=== PATIENT | female | born 1960 | race Caucasian/White ===

== ENCOUNTER → 2019-03-22 | Outpatient (CLI) | payer SELFPAY | END | disposition home or self-care (01) | LOC: LABSPEC 15:42 | PROVIDERS: Family Provider Family Medicine; PCP Family Medicine; Referring Provider Otolaryngology Otolaryngology/Facial Plastic Surgery; Visit Provider Otolaryngology Otolaryngology/Facial Plastic Surgery | DX: J32.9 Chronic sinusitis, unspecified (principal) | CPT/HCPCS: 87070; 87077; 87186; 87205 ==

== ENCOUNTER → 2020-01-05 | Outpatient (CLI) | payer OTHER, SELFPAY ==
--- NOTE | 2020-01-05 11:40 | RAD_ITS ---
HISTORY: COUGH PATIENT STATES JUST HAD COVID TESTING. ADDITIONAL HISTORY: None provided. COMPARISON: None EXAMINATION/TECHNIQUE: XR Chest 2 Views Number of images including paperwork: 2 FINDINGS: LUNGS AND PLEURA: No consolidation, mass or pleural effusion. CARDIAC SILHOUETTE: Unremarkable. MEDIASTINUM AND AVA: Unremarkable. UPPER ABDOMEN: Unremarkable. SKELETON AND SOFT TISSUES: No acute findings. Degenerative changes. Thoracolumbar kyphosis. OTHER DEVICES AND HARDWARE: None. RAD/Chest PA and Lateral IMPRESSION: No acute cardiopulmonary abnormality. at 0052 Reported and signed by: Lindsey Hall MD Electronically Signed: Lindsey Hall MD at 0:52 EDT Tel , Service support ,
== END | disposition home or self-care (01) ==
LOC: RAD 11:32
PROVIDERS: PCP Family Medicine; Referring Provider Family Medicine; Visit Provider Family Medicine
DX: J20.9 Acute bronchitis, unspecified (principal)
CPT/HCPCS: 71046; 87635; U0003

== ENCOUNTER 2020-07-17 20:08 | Emergency (ER) | payer OTHER, SELFPAY ==
[2020-07-17 20:10] VITALS: BP 154/88; PULSE 80; RESP 18; TEMP 36.8; O2SAT 97; BMI 26.2
--- NOTE | 2020-07-17 20:56 | ED.VIS.GEN ---
History of Present Illness Chief Complaint: Laceration Informant: Patient Narrative: 59-year-old female presenting with laceration to the left aspect of her hand. She states bleeding is controlled. Patient already butterflied the wound together. Minimal pain. Tetanus is up-to-date. Past Medical History - Allergies and Home Meds Allergies/Adverse Reactions: Allergies soy Allergy (Verified 07/17/20 20:10) Rash Primary Care Physician: Landon Thomas MD [Primary Care Provider] - Prior records reviewed: Yes Past Medical History: - - She denies significant medical history. Surgical History: noncontributory Lives: Spouse/ Significant Other Smoking Status: Never smoker Alcohol: None Drugs: None Review of Systems General: Denies: Chills, Fever, Sweats Eyes: Denies: Visual changes - bilaterally, Diplopia ENT: Denies: Rhinorrhea, Sore throat Cardiovascular: Denies: Chest pain, Palpitations Respiratory: Denies: Dyspnea, Cough, Dyspnea on exertion Gastrointestinal: Denies: Abdominal pain, Nausea, Vomiting, Diarrhea, Melena, Hematochezia Genitourinary: Denies: Dysuria, Hematuria, Frequency Musculoskeletal: Denies: Back pain, Extremity Pain Skin: Reports: Wounds. Denies: Rash Neurological: Denies: Headache, Weakness, Numbness Psych: Denies: Depression, Anxiety Physical Exam Vital Signs/Narrative: Vital Signs Temp Pulse Resp BP Pulse Ox 07/17/20 20:10 98.3 F 80 18 154/88 H 97 Inital Vital Signs reviewed: Yes General: Well nourished, Well developed, No Acute Distress Head: Normocephalic, Atraumatic Eyes: Perrl, EOMI ENT: Moist mucous membranes, No rhinorrhea Cardiovascular: Regular rate, Regular rhythm, No murmurs Respiratory: No distress, CTA bilaterally, Chest nontender Skin: Normal color, No rash, - - 0.5 cm laceration to left medial hand Neurological: Alert, Oriented x3 Psychological: Normal affect, Normal Mood Diagnostic/Tx/Re-eval - Medical Decision Making Patient presents with laceration to the left medial hand which is well approximated with a butterfly. There is no bleeding. Patient counseled that I could possibly suture this however it does not look deep in it is already approximated. Patient felt comfortable being discharged home. She was placed in a new dressing. Impression: 1. 1.5 cm laceration ED Disposition - Plan for ED Patient: Disposition: Home or Assisted Living Instructions: ED Laceration: All Closures Referrals: Landon Thomas MD [Primary Care Provider] -
[2020-07-17 21:12] VITALS: BP 148/78; PULSE 80; RESP 18; O2SAT 97
== END 2020-07-17 21:13 | disposition home or self-care (01) ==
PROVIDERS: Emergency Provider Student in an Organized Health Care Education/Training Program; PCP Family Medicine
DX: S61.412A Laceration without foreign body of left hand, initial encounter (principal); W26.9XXA Contact with unspecified sharp object(s), initial encounter; Y93.89 Activity, other specified; Y92.89 Other specified places as the place of occurrence of the external cause; Y99.8 Other external cause status
CPT/HCPCS: 99283

== ENCOUNTER → 2021-03-09 15:14 | Outpatient (CLI) | payer OTHER, SELFPAY | PROVIDERS: PCP Family Medicine; Referring Provider Family Medicine; Visit Provider Family Medicine | DX: U07.1 COVID-19 (principal); Z20.822 Contact with and (suspected) exposure to COVID-19 | CPT/HCPCS: 87635; U0005; U0003 ==

== ENCOUNTER 2021-03-13 12:59 | Emergency (ER) | payer OTHER, SELFPAY ==
[2021-03-13 13:00] VITALS: BP 121/83; PULSE 92; RESP 16; TEMP 37.2; O2SAT 96; BMI 25.4
[2021-03-13 13:26] VITALS: O2SAT 94
[2021-03-13] MEDS: 0.9% Normal Saline 1,000 ML 1000 ML IV (14:13)
[2021-03-13 14:15] LABS: Absolute Lymphocyte Count 0.61 X10^3/uL (0.83-4.51); Absolute Neutrophil Count 4.5 X10^3/uL (2.0-7.7); Basophil# 0.01 X10^3/uL; Basophil% 0.2 % (0-1); Hematocrit 42.1 % (37-47); Hemoglobin 13.9 g/dL (12.0-15.0); Lymphocyte # 0.61 X10^3/ul (0.83-4.51); Lymphocyte % 11.3 % (19-41); Mean Corpuscular Hgb 28.7 pg (27.0-32.0); Mean Platelet Vol. 8.6 fl (6.2-12.0); Monocyte# 0.29 X10^3/uL; Monocyte% 5.4 % (0-10); NRBC Flagged by Analyzer 0 % (0-5); Neutrophil # 4.45 X10^3/uL (2.7-7.7); Neutrophil % 82.7 % (47-70); Platelet Count 231 K/mm3 (150-450); RBC Distribution Width CV 12.2 % (11.6-14.6); RBC Distribution Width SD 39.3 fl (35.1-43.9); Red Blood Count 4.84 M/mm3 (4.2-5.4); White Blood Count 5.4 K/mm3 (4.4-11.0)
[2021-03-13 14:27] VITALS: O2SAT 93
--- NOTE | 2021-03-13 14:30 | RAD_ITS ---
STUDY: X-RAY CHEST REASON FOR EXAM: Female, 60 years old. Cough, + COVID TECHNIQUE: Single frontal view of the chest. COMPARISON: 01/05/2020 FINDINGS: There are nonspecific opacities within the lower lungs. There is cardiomegaly. Normal mediastinum and jamil. Normal visualized pulmonary arteries. Normal visualized aortic arch and descending thoracic aorta. Normal visualized thoracic spine. Normal visualized ribs, clavicles, and shoulders. There is no demonstrated abnormality of the visualized soft tissue structures of the upper abdomen. RAD/Chest 1 View (Portable) IMPRESSION: Nonspecific opacities within the lower lungs may be partially secondary to a confluence of shadows however cannot entirely exclude multifocal pneumonia. Cardiomegaly. Electronically Signed: Diann Acuna MD at 14:53 EDT Tel , Service support ,
[2021-03-13 14:31] LABS: Anion Gap 5 (5-15); BUN 13 mg/dL (7-18); BUN/Creat Ratio 13.8 RATIO (10-20); Calcium,Total 8.8 mg/dL (8.5-10.1); Chloride 102 mmol/L (98-107); Creatinine, Serum 0.94 mg/dL (0.55-1.02); EST Glomerular Filtration Rate 64 mL/min (>60); Est Glom Filt Rate - Afr Amer 78 mL/min (>60); Estimated Creatinine Clearance 54.27 ml/min; Glucose 114 mg/dL (74-106); Sodium Level 137 mmol/L (136-145); Troponin-I HS 17 pg/mL (3.0-54.0)
[2021-03-13] MEDS: Ketorolac 15 MG/ML Vial IV (14:38)
--- NOTE | 2021-03-13 14:50 | EDS_ITS ---
HPI History of Present Illness Chief Complaint: Shortness of Breath Informant: patient Narrative Narrative: Patient is a 60-year-old female with history of asthma presenting with worsening cough. Patient states she had a cough since Tuesday, for the past week. She was tested for Covid and had a positive Covid test on Tuesday of this week, 4 days ago. She is been feeling short of breath is having chest pain associate with her coughing. She attributes her cough to allergy she gets every year since is they are currently harvesting soybeans and she is allergic to soybean dust. She has tried an inhaler which is not helping. She would like a prescription for steroids. She denies any swelling of her legs. She denies any history of DVT or PE. She denies any other complaints at this time. She denies any fever or chills. Patient does note that she feels dehydrated from not drinking as much and she is been coughing so much. [facility] Medical History Asthma Home Medications prednisone 40 mg PO DAILY #10 tab 03/13/21 [Rx Last Taken Unknown] Allergy/AdvReac Type Severity Reaction Status Date / Time soy Allergy Rash Verified 03/13/21 13:05 Social History Smoking Status: Never smoker ROS ROS ED Constitutional Constitutional ED: Denies chills, fever(s) or malaise Eyes Eyes: Denies blurry vision or loss of vision ENT ENT ED: Denies rhinorrhea or sore throat Cardiovascular Cardiovascular: Reports chest pain; Denies dizziness Respiratory/Chest Respiratory/Chest: Reports cough and dyspnea; Denies sputum Gastrointestinal Gastrointestinal: Denies nausea or vomiting Genitourinary Genitourinary ED: Denies dysuria or hematuria Musculoskeletal Musculoskeletal: Denies arthralgias or myalgias Integumentary Denies rash or wounds Neurologic Neurologic: Denies focal weakness or headache(s) Psychiatric Psychiatric: Denies anxiety or behavioral changes EXAM Physical Exam Const Vital Signs: 03/13/21 13:00 03/13/21 13:26 Temperature 99 F Temperature Source Oral Pulse Rate 92 Respiratory Rate 16 Respiratory Effort Short of Breath Blood Pressure 121/83 H Blood Pressure Mean 95 Pulse Ox 96 Oxygen Delivery Method Room Air Room Air Positive well nourished and well developed General Appearance ED: well developed HEENT Reports TM's clear and moist mucous membranes Tympanic Membrane ED: Yes TM's clear Eyes PERRL and EOMs intact bilaterally Neck supple and no JVD Chest Wall inspection of chest normal and palpation of chest normal Resp normal respiratory effort and clear to auscultation bilaterally Resp Narrative: Bronchial cough on exam Auscultation: Negative for rales, rhonchi or wheezes Cardio regular rate GI normal to inspection, nondistended, normoactive bowel sounds and non-tender Extremity normal to inspection General Extremety ED: Negative for edema or tenderness General Extremity: Negative for edema Neuro oriented x3 Sensorium / Orientation: alert Motor Exam: Negative for general weakness Psych mental status grossly normal Mood & Affect: anxious Skin no rashes or lesions noted MDM MDM MDM Narrative Medical decision making narrative: Patient evaluated worsening cough. She attributed to allergies but does note that she was diagnosed with Covid earlier this week. She is not wheezing at this time. She be given a course of prednisone. Chest x-ray questionably shows multifocal pneumonia versus shadowing. Given her diagnosis of Covid I suspect she likely has a viral pneumonia. Patient is ambulated in the ER and does not have any hypoxia. She is not tachycardic and I do not think a PE explains her bronchial cough. She will put on a course of prednisone to help with her bronchitis. She will be referred for monoclonal antibody has had she had symptoms for less than a week, is not hypoxic and does have underlying asthma/reactive airway. Patient is counseled the importance of quarantine and reducing spread of Covid to others. Patient is counseled on signs and symptoms requiring return to the emergency room. Patient verbalizes agreement and understand this plan. Patient discharged home in stable and improved condition. Lab Data Labs: Laboratory Results - last 24 hr 03/13/21 03/13/21 14:07 14:07 WBC 5.4 RBC 4.84 Hgb 13.9 Hct 42.1 MCV 87.0 MCH 28.7 MCHC 33.0 RDW Std Deviation 39.3 RDW Coeff of [place] 12.2 Plt Count 231 MPV 8.6 Immature Gran % (Auto) 0.400 Neut % (Auto) 82.7 H Lymph % (Auto) 11.3 L Barnes % (Auto) 5.4 Eos % (Auto) 0.0 Baso % (Auto) 0.2 Absolute Neuts (auto) 4.5 Absolute Lymphs (auto) 0.61 L Nucleated RBC % 0 Sodium 137 Potassium 4.0 Chloride 102 Carbon Dioxide 30.0 Anion Gap 5 BUN 13 Creatinine 0.94 Estim Creat Clear Calc 54.27 Est GFR (MDRD) Af Amer 78 Est GFR (MDRD) Non-Af 64 BUN/Creatinine Ratio 13.8 Glucose 114 H Calcium 8.8 Troponin I High Sens 17 Radiography Chest X-Ray - ED: 1 View, Read by ED Physician, Read by Radiologist and - (Multifocal infiltrate) Discharge Plan Triage Chief Complaint: Shortness of Breath ED Provider: Justine Segovia Dx/Rx/DC Orders Clinical Impression: Acute bronchitis due to COVID-19 virus Instructions: Coronavirus Disease 2019 (COVID-19): Caring for Yourself or O thers, ED Bronchitis, No Antibiotic (Adult) Prescriptions: New prednisone 20 mg tablet 40 mg PO DAILY Qty: 10 RF: 0 Other Ambulatory Orders: COVID Outpatient Monoclonal Antibody Referral (Routine) Timeframe: 1 Day Facility: [facility] - Location: [facility] Ordered By: Dr. Justine Segovia Primary Care Provider: Landon Thomas Referrals: Landon Thomas MD [Primary Care Provider] - Disposition Disposition: Home, Self Care
== END 2021-03-13 15:20 | disposition home or self-care (01) ==
PROVIDERS: Emergency Provider Emergency Medicine; PCP Family Medicine
DX: U07.1 COVID-19 (principal); J20.8 Acute bronchitis due to other specified organisms; J45.909 Unspecified asthma, uncomplicated
CPT/HCPCS: 71045; 80048; 84484; 85025; 96361; 96374; 99284; J7030; A4216

== ENCOUNTER 2021-03-13 20:29 | Emergency (ER) | payer OTHER, SELFPAY ==
[2021-03-13 20:29] VITALS: BP 120/79; PULSE 89; RESP 18; TEMP 36.9; O2SAT 94; BMI 25.1
[2021-03-13 20:41] VITALS: PULSE 87; RESP 15; O2SAT 93; O2SAT 98
--- NOTE | 2021-03-13 21:18 | ED.VIS.DYS ---
HPI History of Present Illness Chief Complaint: Shortness of Breath Informant: patient Narrative Narrative: 60-year-old female states that she is having bronchial muscle spasms. She states that they cause her to jolt. Patient was seen here earlier today and started on prednisone at her request she believes she is having more bronchitis due to her allergies. She recently tested positive for COVID-19 but states I guess I have it. Patient states that after she left here earlier today she felt fine but these muscle spasms came back. Her inhaler has month and a half ago PFSH PFSH Medical History Asthma Non-smoker Home Medications albuterol sulfate 2.5 mg INHALATION Q4H PRN #25 vial 03/13/21 [Rx Last Taken Unknown] albuterol sulfate [Ventolin HFA] 2 puff INHALATION Q4H PRN PRN #1 inhaler 03/13/21 [Rx Last Taken Unknown] prednisone 40 mg PO DAILY #10 tab 03/13/21 [Rx Last Taken Unknown] Allergy/AdvReac Type Severity Reaction Status Date / Time soy Allergy Rash Verified 03/13/21 20:44 Social History (Updated 03/13/21 @ 21:[address] Matthew Mitchell, DO) Smoking Status: Never smoker substance use type: does not use ROS ROS ED Constitutional Constitutional ED: Denies chills or weight loss Eyes Eyes: Denies change in vision or diplopia ENT ENT ED: Denies ear pain, rhinorrhea or sore throat Cardiovascular Cardiovascular: Denies chest pain, orthopnea, palpitations or racing heartbeat Respiratory/Chest Respiratory/Chest: Reports cough and dyspnea; Denies orthopnea Gastrointestinal Gastrointestinal: Denies abdominal pain, diarrhea, nausea or vomiting Genitourinary Genitourinary ED: Denies dysuria, hematuria or urinary frequency Musculoskeletal Musculoskeletal: Denies arthralgias or myalgias Integumentary Denies abscess or rash Neurologic Neurologic: Denies headache(s) or weakness Psychiatric Psychiatric: Denies anxiety, depression, suicidal ideation or suicidal thoughts Endocrine Endocrinology: Denies polydipsia, polyphagia or polyuria Allergic/Immunologic Allergic/Immunologic ED: Denies mouth swelling, tongue swelling or urticaria EXAM Physical Exam Const Vital Signs: 03/13/21 20:29 03/13/21 20:41 Temperature 98.4 F Temperature Source Temporal Pulse Rate 89 87 Respiratory Rate 18 15 Respiratory Effort Normal Respiratory Depth Normal Respiratory Pattern Normal Blood Pressure 120/79 Blood Pressure Mean 92 Pulse Ox 94 98 Oxygen Delivery Method Room Air Room Air Positive well nourished and well developed General Appearance ED: well developed HEENT Reports normocephalic, head/scalp atraumatic and moist mucous membranes Eyes PERRL and EOMs intact bilaterally Neck no lymphadenopathy, supple and no JVD Resp normal respiratory effort and clear to auscultation bilaterally Resp Narrative: Dry cough Auscultation: Negative for rhonchi or wheezes Cardio regular rate, regular rhythm and no murmurs GI normal to inspection, nondistended, normoactive bowel sounds and non-tender Palpation: soft Back/Spine no CVA tenderness and normal ROM Extremity normal to inspection General Extremety ED: Negative for edema General Extremity: Negative for edema Neuro oriented x3 and CN's II-XII intact bilaterally Sensorium / Orientation: alert Motor Exam: strength 5/5 throughout Psych mental status grossly normal Mood & Affect: Negative for depressed or tearful Skin no rashes or lesions noted and no wounds MDM MDM MDM Narrative Medical decision making narrative: Patient's lung sounds are clear. She has a cough. She is 95% on room air. I can write for her to have a DuoNeb here. Her daughter has access to a nebulizer machine so she can take the tubing home with her and I can write for albuterol solution. At the current time the patient does not appear to need admission. Discharge Plan Triage Chief Complaint: Shortness of Breath ED Provider: Matthew Mitchell Dx/Rx/DC Orders Clinical Impression: COVID-19 Instructions: Coronavirus Disease 2019 (COVID-19): Caring for Yourself or Others Prescriptions: New albuterol sulfate 2.5 MG/3 ML solution for nebulization 2.5 mg inhalation Q4H PRN Qty: 25 RF: 0 albuterol sulfate [Ventolin HFA] 1 INHALER inhaler 2 puff inhalation Q4H PRN PRN (Reason: Wheezing) Qty: 1 RF: 0 No Action prednisone 20 mg tablet 40 mg PO DAILY Qty: 10 RF: 0 Primary Care Provider: Landon Thomas Referrals: Landon Thomas MD [Primary Care Provider] - As Needed Disposition Disposition: Home, Self Care
[2021-03-13] MEDS: Ipratropium/Albuterol Sulfate 3 ML AMPUL.NEB INHALATION (21:23)
[2021-03-13 21:24] VITALS: PULSE 80; RESP 16
[2021-03-13 22:39] VITALS: BP 115/67; PULSE 87; RESP 16; O2SAT 93
== END 2021-03-13 22:42 | disposition home or self-care (01) ==
PROVIDERS: Emergency Provider Emergency Medicine; PCP Family Medicine
DX: U07.1 COVID-19 (principal); J45.909 Unspecified asthma, uncomplicated; Z79.51 Long term (current) use of inhaled steroids
CPT/HCPCS: 94640; 99282

== ENCOUNTER → 2024-11-08 | Outpatient (CLI) | payer OTHER, SELFPAY ==
--- NOTE | 2024-11-08 16:17 | RAD_ITS ---
PROCEDURE: KNEE 4 OR MORE VIEWS 11/08/2024 REASON FOR EXAM: PAIN TECHNIQUE: Four views of the left knee COMPARISON: None RAD/Knee 4 or More Views IMPRESSION: No acute fracture or dislocation. Mild degenerative changes of the left knee. Mild joint effusion. Mild diffuse soft tissue edema. Reading Location: [id number]
== END | disposition home or self-care (01) ==
LOC: MTRAD 16:16
PROVIDERS: PCP Family Medicine; Referring Provider Nurse Practitioner Family; Visit Provider Nurse Practitioner Family
DX: M25.562 Pain in left knee (principal)
CPT/HCPCS: 73564

== ENCOUNTER 2024-12-26 17:00 | Outpatient (RCR) | payer OTHER, SELFPAY ==
--- NOTE | 2024-11-27 08:08 | HP.PTEVAL_ITS ---
Patient's Visit Information Visit Information Visit Information: EMILEE DOSS is a 64 year old F referred to Physical Therapy by Dr. Lenin Thomas MD with a diagnosis of Left Knee Pain. 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 She left work and went to see Dr. Thomas- he put her on Predisone- it helped but things got worse- she was at the end of the medication and she could not even lay on her knee on the bed while sleeping on her belly and she went back and they took x-rays and put her on Meloxicam and they told her to get a sleeve. She did and they made it worse and she had a camp and she had a campfire on the medial side of the knee she called them back and they put her on another round of predisone and told her to do leg lifts. She has mild degeneration and fluid in the back of the knee. She went to the [facility] and they put her in traction and they put in her in traction and that made it feel a lot better. She went back yesterday and he told her its much better and used his activator on the medial side of the knee. She is really stiff in the AM. She is still working- she worked 3 hours yesterday and has a 7 hour shift today- 7 tomorrow-7 -12 tuesday-12 Tuesday and 6 on tuesday. She feels like there is a cramp inside the knee- feels like there is something inside the knee shifting. Worst: 2/10 in the last 24 hours. Its been dull and achy. Has not been painfree in the last month. Agg: Being on it, sleeping, getting up in the AM, warm water. She tried to ice it and heat it and both make it worse. Sleep: not disturbed- but its worse in the AM. Twisting on it really bothers her in one little spot. She wears tennis shoes at work but they don't have a lot of support- she is looking for a new pair. She feels that its getting better but its not there yet- 50%. No MRI. PMHx/Meds: see list in chart. Objective Objective: Posture: fair throughout Gait: antalgic- decrease stance on left LE- poor heel/toe as pt does not have f ull extension in left knee HR/TR: able SLS: 3 sec then LOB with increased sway ROM: -10 degrees from full extension- 120 degrees of flexion with pain at end range Palpation: tender along medial joint line Edema: Patella: Right: 34 cm and Left: 35.5 cm 6 above: Right: 48.5 cm Left: 49cm Strength: Core: fair, Hip:4+/5 throughout, Quad set: Left: visible- Flex: 35 Extn: 28 with discomfort both direction, Ankle: 5/5 Flex: HS: severe, Solues: moderate Special Tests L Knee Darrick - Meniscus: Positive L Knee Valgus - MCL: Positive L Knee Varus - LCL: Positive Goals Goal 1:: Patient will be I with HEP and progression Goal Time Frame: 4-6 Weeks Goal 2:: Patient will ambulate >150 feet with a normalized gait pattern Goal Time Frame: 4-6 Weeks Goal 3:: Patient will demo full AROM of the left knee without pain Goal Time Frame: 4-6 Weeks Goal 4:: Patient will have equal girth bilateral at patella Goal Time Frame: 4-6 Weeks Goal 5:: Patient will report 80% improvement Goal Time Frame: 4-6 Weeks Rehabilitation Potential Physical Therapy Diagnosis: Patient presents with hypomobility- she has decreased painfree ROM, strength/stabilization, flex, proprioception and muscular endurance leading to abnormal gait and increased pain with ADL's. Rehabilitation Potential: Good Anticipated Interventions Patient/Client Instruction: Educate patient on: Benefits of Fitness Program Therapeutic Exercise to Include: Strength training, Endurance training, Balance training, Coordination, Agility training, Body mechanics, Postural training, Flexibilty training, Gait and locomotor training, Neuromotor development, Dynamic Lumbar Stabilization and Scapular Strength/Stabilization For the Purpose of:: To improve muscle performance and motor function TENS: Yes Cryotherapy (ice pack, ice massage): Yes Thermo therapy (hot pack): Yes Ultrasound (thermal/non thermal): Yes Vasopneumatic device: Yes Text: Thank you for the opportunity to evaluate your patient. For Medicare and Medicare HMO plans, please review the plan of care and approve it. It will need to be FAXED BACK to us at [phone] for Medicare purposes. For Medicare only, by signing this I certify the plan of care. Please let me know if there are questions or concerns regarding this plan of care. Physician S ignature: Date:
== END 2024-12-26 19:00 | disposition home or self-care (01) ==
LOC: PT 17:00
PROVIDERS: PCP Family Medicine; Referring Provider Family Medicine; Visit Provider Family Medicine
DX: M25.562 Pain in left knee (principal)
CPT/HCPCS: 97016; 97035; 97110; 97162; 97530

== ENCOUNTER → 2025-05-01 | Outpatient (CLI) | payer OTHER, SELFPAY ==
--- NOTE | 2025-05-01 13:26 | MRI_ITS ---
PROCEDURE: LOWER EXT JOINT ONLY (ROUTINE) 05/01/2025 REASON FOR EXAM: L KNEE PAIN. WEAKNESS, INSTABILITY. FAILED PT AND NSAIDS. TECHNIQUE: Procedure Code: MRILEJ Modality: MR Procedure: LOWER EXT JOINT ONLY (ROUTINE) T1, T2, PD, multiplanar and multisequence images were obtained without IV contrast administration. COMPARISON: COMPARISON : None FINDINGS: Bone Marrow: There is a 1.2 x 1.9 cm osteochondral defect in the medial femoral condyle with associated subcortical edema, with no free fragment. Cruciate ligaments: There is a edema and attenuation throughout the anterior cruciate ligament with lax components, grade 2-3 sprain. There is edema and attenuation in the proximal 3rd of the posterior cruciate ligament without laxity, grade 2 sprain. Collateral ligaments: There is a edema, thickening, and attenuation in the medial collateral ligament without laxity, grade 2 sprain. The lateral collateral ligament complex appears intact. Menisci: There is a radial tear of the root of the medial meniscus with extrusion of the body. There is a complex tear of the lateral meniscus including a vertical component which extends to the tibial surface. Effusion: There is a large joint effusion. There is a 2.5 x 1.5 cm Rojo's cyst. 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 A fissure is noted in the lateral patellar facet. Extensor compartment: There is severe tendinopathy of the distal quadriceps tendon without full-thickness tear or retraction. The patellar tendon appears intact. MRI/Lower Ext Joint Only (Routine) IMPRESSION: There is a 1.2 x 1.9 cm osteochondral defect in the medial femoral condyle with associated subcortical edema, with no free fragment. There is a edema and attenuation throughout the anterior cruciate ligament with lax components, grade 2-3 sprain. There is edema and attenuation in the proximal 3rd of the posterior cruciate li gament without laxity, grade 2 sprain. There is a edema, thickening, and attenuation in the medial collateral ligament without laxity, grade 2 sprain. There is a radial tear of the root of the medial meniscus with extrusion of the body. There is a complex tear of the lateral meniscus including a vertical component which extends to the tibial surface. There is a large joint effusion. There is a 2.5 x 1.5 cm Rojo's cyst. 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 A fissure is noted in the lateral patellar facet. There is severe tendinopathy of the distal quadriceps tendon without full-thick ness tear or retraction. Reading Location: [facility]
== END | disposition home or self-care (01) ==
LOC: OPMRI 13:15
PROVIDERS: PCP Family Medicine; Referring Provider Family Medicine; Visit Provider Family Medicine
DX: M25.562 Pain in left knee (principal)
CPT/HCPCS: 73721